=== PATIENT | male | born 1995 | race African-American/Black ===

== ENCOUNTER 2024-10-24 12:44 | Emergency (ER) | payer OTHER ==
[~2024-10-24] VITALS: Ht 175.3 cm; Wt 86.0 kg
[2024-10-24 12:57] VITALS: TEMP 36.9
[2024-10-24] MEDS ORDERED: METHYLPREDNISOLONE 40MG/ML INJ IV ONE (13:30)
[2024-10-24] MEDS ORDERED: IPRATROPIUM/ALBUTEROL 0.5-3(2.5)MG/3ML NEB HHN ONE (13:30)
[2024-10-24 13:55] VITALS: PULSE 71; RESP 20; O2SAT 99
[2024-10-24] MEDS: METHYLPREDNISOLONE SOD SUCC 125MG/2ML (ACT-O-VIAL) IV SCH (14:35)
[2024-10-24] MEDS ORDERED: ALBU18HF2 IH (15:07)
[2024-10-24] MEDS ORDERED: PRED5TAB48 MT (15:07)
[2024-10-24 15:17] VITALS: BP 117/72; PULSE 70; RESP 12; O2SAT 96
== END 2024-10-24 15:18 | disposition home or self-care (01) ==
LOC: ER 12:44
DX: J45.901 Unspecified asthma with (acute) exacerbation (principal); F12.90 Cannabis use, unspecified, uncomplicated; Z79.899 Other long term (current) drug therapy
CPT/HCPCS: 71045; 96374; 99283; J2919; Z7610 ×2